=== PATIENT | male | born 1965 | race Caucasian/White ===

== ENCOUNTER 2016-08-26 06:04 | Day surgery (SDC) | payer OTHER ==
[2016-08-26] MEDS: HYDROmorphone 1 MG/ML SYRINGE ONE ×2 (00:50→08:45)
[2016-08-26] MEDS ORDERED: ACETAMINOPHEN 1,000 MG/100 ML 100 ML IV ONE (06:28)
[2016-08-26] MEDS ORDERED: LACTATED RINGERS 1,000 ML IV ONE (07:04)
[2016-08-26] MEDS ORDERED: CELECOXIB 100 MG CAPSULE PO ONE (07:14)
[2016-08-26] MEDS ORDERED: CLINDAMYCIN IV 600 MG/50 ML IV SCH (07:30)
[2016-08-26] MEDS ORDERED: LIDOCAINE-MPF 2% 5 ML VIAL IM ONE (08:00)
[2016-08-26] MEDS ORDERED: ONDANSETRON 4 MG/2 ML VIAL IVP ONE (08:00)
[2016-08-26] MEDS ORDERED: PROPOFOL 200 MG/20 ML VIAL IVP ONE (08:00)
[2016-08-26] MEDS ORDERED: fentaNYL 100 MCG/2 ML VIAL IVP ONE (08:00)
[2016-08-26] MEDS ORDERED: DEXAMETHASONE 4 MG/ML VIAL IVP ONE (08:00)
[2016-08-26] MEDS ORDERED: MIDAZOLAM 2 MG/2 ML VIAL IVP ONE (08:00)
[2016-08-26] MEDS ORDERED: MORPHINE PF 5 MG/10 ML AMP EPI ONE (08:04)
[2016-08-26] MEDS ORDERED: BUPIVACAINE 0.25%-EPI 1:200000 PF 30 ML VIAL SUBQ ONE (08:04)
[2016-08-26] MEDS ORDERED: ROPIVACAINE 0.2% PF 10 ML VIAL EPI ONE (08:04)
[2016-08-26] MEDS ORDERED: oxyCOD/ACETAMIN 5 MG/325 MG TABLET PO ONE (09:12)
== END 2016-08-26 06:05 | disposition home or self-care (01) ==
PROC: 0SBD4ZZ Excision of Left Knee Joint, Percutaneous Endoscopic Approach (ICD-10-PCS; principal; 2016-08-26 07:30)
DX: M67.52 Plica syndrome, left knee (principal); K21.9 Gastro-esophageal reflux disease without esophagitis; G47.30 Sleep apnea, unspecified; F17.210 Nicotine dependence, cigarettes, uncomplicated
CPT/HCPCS: 29875; A9270; J0131; J1170; J7120

== ENCOUNTER 2017-05-26 10:48 | Outpatient (CLI) | payer OTHER ==
[2017-05-26 18:38] VITALS: BP 158/92
--- NOTE | 2017-05-26 22:53 | CARDIAC PROCEDURE NOTE ---
DATE OF SERVICE: 05/26/2017 00:00:00 PRIMARY CARE PHYSICIAN. Derrek Almendarez, [facility]. PROCEDURE: Cardiac treadmill stress test. REASON FOR PROCEDURE: Chest pain. CARDIAC RISK FACTORS: Include age and smoker. CURRENT SYMPTOMATOLOGY: None. CLINICAL HISTORY: A 52-year-old male without known coronary artery disease. INITIAL RESTING VITAL SIGNS: Blood pressure 158/92, heart rate 54, height 66 inches, weight 190 pounds. BMI 30.6. PROCEDURE AND FINDINGS: The patient's identity and date verified. Consent signed. The patient performed treadmill exercise using a Ry protocol completing 10 minutes, 22 seconds and completing an estimated workload of 12.9 metabolic equivalents. Predicted exercise time was 9:40 to 10:25. Maximal blood pressure was 226/84 with a heart rate of 171 beats per minute or 101% of maximum predicted heart rate for age. The blood pressure response to exercise was hypertensive. The patient stopped because greater than 100% predicted heart rate was achieved. The resting ECG demonstrated normal sinus rhythm with repolarization abnormality. Maximum ST segment depression was less than 0.5 mm and upsloping. There was no ectopy. The 1 minute heart rate recovery was within normal limits. At 5 minutes into recovery he developed inverted T waves in the inferior and lateral leads. FINAL IMPRESSION 1. Negative stress electrocardiogram for ischemia by electrocardiographic criteria. 2. Nonspecific T-wave changes. 3. Negative stress test clinically for angina. 4. No ectopy nor arrhythmia. JOB #: [id number] EXT JOB #:[id number] MTDJuan
--- NOTE | 2017-05-27 16:45 | XRAY Report ---
CARDIOVASCULAR TREADMILL TEST There was no imaging performed for this exam. Procedure notes and results available in the EMR. CY
== END 2017-05-26 10:49 | disposition home or self-care (01) ==
LOC: DI 10:48
PROVIDERS: ATTEND Physician Assistant
DX: R07.89 Other chest pain (principal); F17.200 Nicotine dependence, unspecified, uncomplicated
CPT/HCPCS: 93017

== ENCOUNTER 2017-05-28 12:12 | Emergency (ER) | payer OTHER ==
--- NOTE | 2017-05-28 12:33 | ED Physician Documentation ---
PD HPI CHEST PAIN - Stated complaint Stated Complaint: CHEST PX - Chief complaint Chief Complaint: Cardiac - History obtained from History obtained from: Patient - History of Present Illness Timing - onset: How many days ago (1 1/2 days ago with undulating chest pressure /pain, worse this morning.) Timing - onset during: Exertion Timing - details: Abrupt onset (he has been having intermittent chest pain, with exertion, the past 1-2 weeks. Had rest chest pressure/pain the past 1 1/2 days, and then onset of worse chest pressure with nausea this morning 2-3 hours ago.), Waxing and waning Quality: Pressure, Tightness, Pain Location: Substernal Radiation: Neck, Left upper extremity Improved by: No: Rest Worsened by: No: Inspiration, Movement, Palpation, Position Associated symptoms: Shortness of air, Nausea. No: Feeling faint / dizzy, General Weakness, Palpitations Similar symptoms before: Has not had sx before Recently seen: Clinic (Seen in Clinic at [facility] with chest pain episodes, and was treated with GI meds and had outpatient stress test ordered. This was done 2 days ago here at [facility] and was interpreted as negative. He then had onset of rest pain intermittently later that evening, yesterday, and then worse/ persistent the past few hours.) Review of Systems Constitutional: denies: Fever, Chills Nose: denies: Rhinorrhea / runny nose, Congestion Throat: denies: Sore throat Cardiac: reports: Chest pain / pressure. denies: Palpitations, Pedal edema, Calf pain Respiratory: reports: Dyspnea. denies: Cough, Wheezing GI: reports: Nausea. denies: Abdominal Pain, Vomiting, Diarrhea, Bloody / black stool : denies: Dysuria, Frequency Skin: denies: Rash, Lesions Musculoskeletal: denies: Neck pain, Back pain Neurologic: reports: Generalized weakness. denies: Focal weakness, Numbness, Near syncope Psychiatric: denies: Anxiety Endocrine: denies: Weight loss, Easy bruising / bleeding Immunocompromised: denies: Immunocompromised PD PAST MEDICAL HISTORY - Past Medical History Cardiovascular: None Respiratory: None Endocrine/Autoimmune: None GI: GERD, Diverticulitis : None HEENT: None Psych: None Musculoskeletal: Osteoarthritis Derm: None - Past Surgical History Ortho: Shoulder arthroplasty - Present Medications Home Medications: Ambulatory Orders Medication Instructions Recorded Confirmed Esomeprazole Magnesium [Nexium] 40 mg PO DAILY 09/03/14 08/26/16 Ibuprofen 800 mg PO Q6HR 06/25/15 08/26/16 - Allergies Allergies/Adverse Reactions: Allergies Allergy/AdvReac Type Severity Reaction Status Date / Time Penicillins Allergy Dizziness Verified 05/28/17 12:23 - Living Situation Living Situation: reports: With spouse/s.o. Living Arrangement: reports: At home - Social History Does the pt smoke?: No Does the pt have substance abuse?: No - Family History Family history: reports: CAD PD ED PE NORMAL - Vitals Vital signs reviewed: Yes - General General: Alert and oriented X 3, Well developed/nourished, Other (appears in discomfort and is moderately pale. No diaphoresis. ) - HEENT HEENT: Pharynx benign - Neck Neck: Supple, no meningeal sign, No adenopathy - Cardiac Cardiac: RRR, No murmur - Respiratory Respiratory: Clear bilaterally - Abdomen Abdomen: Soft, Non tender - Back Back: No CVA TTP - Derm Derm: Warm and dry, No rash. No: Normal color (pallor) - Extremities Extremities: No deformity, No tenderness to palpate, Normal ROM s pain, No edema , No calf tenderness / cord - Neuro Neuro: Alert and oriented X 3, No motor deficit, Normal speech Results - Vitals Vitals: Vital Signs - 24 hr 05/28/17 05/28/17 05/28/17 12:18 12:35 12:45 Temperature 36.7 C Heart Rate 95 90 80 Respiratory 20 18 16 Rate Blood Pressure 134/92 H 129/82 H 123/79 O2 Saturation 98 96 97 Oxygen O2 Source Room air - EKG (time done) on presentation Rhythm: NSR [place]: Normal Intervals: Normal [place] QRS: Normal Ischemia: ST elevation c/w ischemia (anterior leads), ST depression (lateral) Compare to prior EKG: Old EKG unavailable - Labs Labs: Laboratory Tests 05/28/17 05/28/17 05/28/17 12:30 12:30 12:30 WBC 22.4 H RBC 5.17 Hgb 15.8 Hct 46.7 MCV 90.3 MCH 30.6 MCHC 33.9 RDW 13.1 Plt Count 296 MPV 8.3 Neut # Not Reportable Lymph # Not Reportable [place] # Not Reportable Eos # Not Reportable Baso # Not Reportable Absolute Nucleated RBC Not Reportable Band Neuts % (Manual) 0 Nucleated RBC % Not Reportable Neutrophils # (Manual) 17.7 H Lymphocytes # (Manual) 2.9 Monocytes # (Manual) 1.8 H Platelet Estimate NORMAL (130-450,000) RBC Morph Micro Appear NORMAL APPEARANCE Sodium 134 L Potassium 4.0 Chloride 98 L Carbon Dioxide 25 Anion Gap 11.0 BUN 16 Creatinine 0.9 Estimated GFR (MDRD) 89 Glucose 128 H Calcium 9.5 Total Bilirubin 1.0 AST 115 H ALT 45 Alkaline Phosphatase 64 Troponin I 16.13 H* Total Protein 8.0 Albumin 4.4 Globulin 3.6 Albumin/Globulin Ratio 1.2 Lipase 20 L - Rads (name of study) chest Radiology: Prelim report reviewed, EMP read contemporaneously (no acute process) PD MEDICAL DECISION MAKING - ED course Complexity details: reviewed old records (Old ECG not available (was at [facility] and the rhythm/ECG strips from stress test 2 days ago not on [facility]). Stress test report states negative test with some nonspecific T wave changes. ) , reviewed results, considered differential (The patient has been having intermittent chest pain with exertion or a week or 2. He had a stress test just 2 days ago but had an onset of rest chest heaviness and dyspnea starting the evening after the stress test and is continued for the past 1-1/2 days. It became more consistent and significantly more uncomfortable this morning in the last 2-3 hours. He is feeling nauseous with it. He comes in for evaluation. It seems like cardiac pain. His initial EKG is showing significant ST elevations anteriorly. Code STEMI is called and the patient is treated as such. He is transferred from here to [facility] promptly.), d/w patient, d /w software sales consultant ([facility] ER Physician, who accepts transfer. I then talked with Vending Machine Coin Collector as well as patient was enroute. ) - Critical Care Time(min): 35 Time Includes: Direct patient care, Document care, Coordinate care, Medical consult Procedures excluded from critical care time: EKG Departure - Departure Disposition: 02 Transfer Acute Care Hosp Clinical Impression: Chest pain Qualifiers: Chest pain type: precordial pain Qualified Code(s): R07.2 - Precordial pain ST elevation (STEMI) myocardial infarction Qualifiers: Involved coronary artery: other anterior wall coronary artery Qualified Code(s) : I21.09 - ST elevation (STEMI) myocardial infarction involving other coronary artery of anterior wall Condition: Critical Record reviewed to determine appropriate education?: Yes Discharge Date/Time: 05/28/17 12:52
[2017-05-28 12:35] LABS: BASOPHILS % (AUTO) 0.9 %; EOSINOPHILS % (AUTO) 0.5 %; HCT - HEMATOCRIT 46.7 % (42.0-52.0); HGB - HEMOGLOBIN 15.8 g/dL (14.0-18.0); LYMPHOCYTES % (AUTO) 13.1 %; MEAN CORPUSCULAR HEMOGLOBIN 30.6 pg (27.0-31.0); MEAN CORPUSCULAR HGB CONC 33.9 g/dL (32.0-36.0); MEAN CORPUSCULAR VOLUME 90.3 fL (80.0-94.0); MEAN PLATELET VOLUME 8.3 fL (7.4-11.4); MONOCYTES % (AUTO) 8.6 %; NEUTROPHILS % (AUTO) 76.9 %; RED BLOOD COUNT 5.17 10^6/uL (4.70-6.10); RED CELL DISTRIBUTION WIDTH 13.1 % (12.0-15.0); UNCORRECTED WHITE BLOOD COUNT 22.4 x10^3/uL; WHITE BLOOD COUNT 22.4 x10^3/uL (4.8-10.8)
[2017-05-28] MEDS ORDERED: CLOPIDOGREL 300 MG TABLET PO ONE (12:44)
[2017-05-28] MEDS ORDERED: ASPIRIN CHEW 81 MG TABLET ONE (12:44)
[2017-05-28] MEDS ORDERED: HEPARIN 5,000 UNIT/ML VIAL ONE (12:44)
[2017-05-28] MEDS ORDERED: HEPARIN 25,000 UNITS/500 ML NS 25,000 UNIT/500 ML BAG IV ONE (12:44)
[2017-05-28] MEDS ORDERED: METOPROLOL 5 MG/5 ML VIAL IVP ONE (12:47)
[2017-05-28 12:49] LABS: ALBUMIN/GLOBULIN RATIO 1.2 (1.0-2.2); CALCIUM 9.5 mg/dL (8.5-10.3); CREATININE 0.9 mg/dL (0.6-1.2)
[2017-05-28] MEDS ORDERED: ASPIRIN CHEW 81 MG TABLET PO STA (12:49)
[2017-05-28] MEDS ORDERED: CLOPIDOGREL 300 MG TABLET PO STA (12:49)
[2017-05-28] MEDS ORDERED: METOPROLOL 5 MG/5 ML VIAL IVP STA (12:50)
[2017-05-28] MEDS ORDERED: HEPARIN 5,000 UNIT/ML VIAL IVP STA (12:50)
[2017-05-28] MEDS ORDERED: ONDANSETRON 4 MG/2 ML VIAL IVP STA (12:50)
[2017-05-28] MEDS ORDERED: HEPARIN 25,000 UNITS/500 ML NS 25,000 UNIT/500 ML BAG IV STA (12:50)
[2017-05-28 13:05] VITALS: BP 123/79
--- NOTE | 2017-05-28 13:11 | XRAY Preliminary Report ---
Exam: XR CHEST 1 VIEW IMPRESSION: Normal single view chest. RADIA SITE ID: [id number]
[2017-05-28 13:12] LABS: BAND NEUTROPHILS % (MANUAL) 0 %; LYMPHOCYTES % (MANUAL) 13 %; NEUTROPHILS % (MANUAL) 79 %; NP AUTO DIFFERENTIAL? YES; NP MAN DIFFERENTIAL? NO; PLATELET ESTIMATE, MANUAL NORMAL (130-450,000) (NORMAL)
--- NOTE | 2017-05-28 13:14 | XRAY Report ---
EXAM: CHEST RADIOGRAPHY EXAM DATE: 05/28/2017 12:46 PM. CLINICAL HISTORY: Chest pain. COMPARISON: None. TECHNIQUE: 1 view. FINDINGS: Lungs/Pleura: No focal opacities evident. No pleural effusion. No pneumothorax. Mediastinum: Within exam limitations, the cardiomediastinal contour is normal. Other: None. IMPRESSION: Normal single view chest. RAD[facility] Referring Provider Line: [phone] SITE ID: [id number]
== END 2017-05-28 12:52 | disposition short-term general hospital (02) ==
LOC: ED 12:12
DX: I21.09 ST elevation (STEMI) myocardial infarction involving other coronary artery of anterior wall (principal); K21.9 Gastro-esophageal reflux disease without esophagitis; M19.90 Unspecified osteoarthritis, unspecified site
CPT/HCPCS: 36415; 71010; 80053; 83690; 84484; 85025; 93005; 96374; 96375; 96376; 99284; 99291; A9270

== ENCOUNTER 2017-05-28 13:05 | Outpatient (CLI) | payer OTHER | END 2017-05-28 13:06 | disposition short-term general hospital (02) | LOC: EMS 13:05 | PROVIDERS: ATTEND Surgery | DX: I21.09 ST elevation (STEMI) myocardial infarction involving other coronary artery of anterior wall (principal) | CPT/HCPCS: A0425; A0427 ==

== ENCOUNTER 2017-06-04 18:33 | Outpatient (CLI) | payer OTHER | END 2017-06-04 18:34 | disposition short-term general hospital (02) | LOC: EMS 18:33 | PROVIDERS: ATTEND Surgery | DX: I46.9 Cardiac arrest, cause unspecified (principal) | CPT/HCPCS: A0425; A0433 ==

== ENCOUNTER 2017-06-08 10:15 | Outpatient (CLI) | payer OTHER | END 2017-06-08 10:16 | disposition short-term general hospital (02) | LOC: EMS 10:15 | PROVIDERS: ATTEND Surgery | DX: R55 Syncope and collapse (principal) | CPT/HCPCS: A0425; A0427 ==

== ENCOUNTER 2017-06-11 10:52 | Observation (INO) | payer OTHER ==
--- NOTE | 2017-06-11 11:12 | ED Physician Documentation ---
PD HPI CHEST PAIN - Stated complaint Stated Complaint: SOA/WEAKNESS - History obtained from History obtained from: Patient, Family - History of Present Illness Timing - onset: How many days ago (4) Timing - onset during: Light activity Timing - duration: Days (4) Timing - details: Gradual onset, Still present Quality: Pressure, Sharp Location: Substernal Radiation: Neck Improved by: Rest Worsened by: Exertion, Inspiration, Movement Associated symptoms: Shortness of air, Nausea Similar symptoms before: Diagnosis (DC) Recently seen: Admitted, Surgery - Additional information Additional information: 52-year-old male had stents placed 2 weeks ago was on Plavix the stents failed he went into cardiac arrest was resuscitated and new stents were placed 1 week ago. He was released from the hospital 4 days ago and has had progressive fatigue since then. He was prescribe chantix and when he went to the pharmacy to burr picker the medication he was transferred to [facility] for evaluation for extreme fatigue the day after he was released. He has been taking the chantix daily. His biggest complaint is progressive fatigue. Review of Systems Constitutional: reports: Fatigue, Sweats. denies: Fever Eyes: denies: Decreased vision Ears: denies: Ear pain Nose: denies: Congestion Throat: denies: Sore throat Cardiac: reports: Chest pain / pressure, Palpitations Respiratory: reports: Dyspnea. denies: Cough GI: denies: Abdominal Pain, Nausea : denies: Dysuria Skin: denies: Rash Musculoskeletal: denies: Neck pain, Back pain Neurologic: reports: Generalized weakness. denies: Focal weakness, Numbness, Difficulty speaking Psychiatric: reports: Anxiety, Insomnia PD PAST MEDICAL HISTORY - Past Medical History Cardiovascular: None Respiratory: None Endocrine/Autoimmune: None GI: GERD, Diverticulitis : None HEENT: None Psych: None Musculoskeletal: Osteoarthritis Derm: None - Past Surgical History Past Surgical History: Yes Ortho: Shoulder arthroplasty - Present Medications Home Medications: Ambulatory Orders Medication Instructions Recorded Confirmed Esomeprazole Magnesium [Nexium] 40 mg PO DAILY 09/03/14 08/26/16 Ibuprofen 800 mg PO Q6HR 06/25/15 08/26/16 Aspirin Chewable [[place]ant 81 mg PO DAILY 06/11/17 06/11/17 Aspirin] Atorvastatin [Lipitor] 0 mg 06/11/17 Prasugrel HCl [Effient] 5 mg PO 06/11/17 Varenicline Tartrate [Chantix] 0.5 mg PO 06/11/17 raNITIdine [Zantac] 150 mg PO DAILY 06/11/17 06/11/17 - Allergies Allergies/Adverse Reactions: Allergies Allergy/AdvReac Type Severity Reaction Status Date / Time Penicillins Allergy Dizziness Verified 06/11/17 11:19 - Social History Does the pt smoke?: No Smoking Status: Never smoker Does the pt drink ETOH?: No Does the pt have substance abuse?: No - Immunizations Immunizations are current?: Yes PD ED PE NORMAL - General General: Well developed/nourished, Other (The patient prefers to lie with eyes closed and speaks quietly. He is wearing a defibrilator vest. ) - HEENT HEENT: Atraumatic, PERRL, EOMI - Neck Neck: Supple, no meningeal sign - Cardiac Cardiac: RRR, No murmur - Respiratory Respiratory: No respiratory distress, Clear bilaterally - Abdomen Abdomen: Soft, Non tender - Back Back: No CVA TTP, No spinal TTP - Derm Derm: Normal color, Warm and dry, No rash - Extremities Extremities: No deformity, No edema - Neuro Neuro: No motor deficit, No sensory deficit Eye Opening: Spontaneous Motor: Obeys Commands Verbal: Oriented GCS Score: 15 - Psych Psych: Other (mood is withdrawn and the affect is flat. ) Results - Vitals Vitals: Vital Signs - 24 hr 06/11/17 06/11/17 06/11/17 11:10 11:34 12:44 Temperature 36.8 C Heart Rate 62 61 63 Respiratory 16 16 16 Rate Blood Pressure 130/78 115/62 102/67 O2 Saturation 100 100 100 06/11/17 06/11/17 06/11/17 13:23 15:34 16:12 Temperature 36.2 C L Heart Rate 75 72 64 Respiratory 18 20 16 Rate Blood Pressure 114/63 131/81 H 122/70 O2 Saturation 100 99 97 Oxygen O2 Source Room air Oxygen Flow Rate 2 - EKG (time done) 1059 Rate: Rate (enter#) (56) Rhythm: NSR Ischemia: Q waves (anterior) Compare to prior EKG: Changed from prior EKG (SPT 06-04-[address] elevation in the anterior leads seen after arrest are now resolved. ) Computer interpretation: Agree with computer - Labs Labs: Laboratory Tests 06/11/17 06/11/17 06/11/17 10:09 10:09 10:09 WBC 14.2 H RBC 4.92 Hgb 15.1 Hct 44.3 MCV 90.1 MCH 30.8 MCHC 34.1 RDW 12.6 Plt Count 393 MPV 8.3 Neut # 10.0 H Lymph # 2.8 [place] # 1.1 H Eos # 0.1 Baso # 0.1 Absolute Nucleated RBC 0.00 Nucleated RBC % 0.0 PT 12.6 INR 1.1 Sodium 138 Potassium 4.3 Chloride 101 Carbon Dioxide 26 Anion Gap 11.0 BUN 18 Creatinine 1.0 Estimated GFR (MDRD) 79 L Glucose 108 H Calcium 9.7 Total Bilirubin 0.6 AST 24 ALT 45 Alkaline Phosphatase 85 Troponin I B-Natriuretic Peptide Total Protein 8.0 Albumin 4.0 Globulin 4.0 Albumin/Globulin Ratio 1.0 Lipase 25 06/11/17 06/11/17 06/11/17 10:09 10:09 14:26 WBC RBC Hgb Hct MCV MCH MCHC RDW Plt Count MPV Neut # Lymph # [place] # Eos # Baso # Absolute Nucleated RBC Nucleated RBC % PT INR Sodium Potassium Chloride Carbon Dioxide Anion Gap BUN Creatinine Estimated GFR (MDRD) Glucose Calcium Total Bilirubin AST ALT Alkaline Phosphatase Troponin I 0.25 0.24 B-Natriuretic Peptide 94 Total Protein Albumin Globulin Albumin/Globulin Ratio Lipase - Rads (name of study) 1 view chest Radiology: Prelim report reviewed (Impression: Grossly clear lungs.), EMP read indepedently, See rad report Procedures - IVC sono (time) 1215 Bedside IVC sono: IVC measures (cm) (1.02), IVC collapsed c insp (cm) (complete) , Dehydration (1 liter down.) PD MEDICAL DECISION MAKING - ED course Complexity details: reviewed old records, reviewed results, re-evaluated patient , considered differential, d/w patient, d/w family ED course: 52-year-old male with a recent DC and a second DC with arrest arrives to the emergency department today with fatigue as his chief complaint and not feeling well. He and his not been able to sleep and he is quite anxious. He feels that if he gets up to do anything he has symptoms.His initial workup here is fairly unremarkable and I reviewed the results with Dr. Gonzalez at [facility] and we will repeat his troponin today and provide some medication for anxiety. The anxiety medication works well but the road test is concerning for symptoms of light headedness after standing and getting the hear rate to 80. I have consulted Dr. Frausto in the case and she will place the patient in observation today and adjust medications as needed. The patient will stop his chantix. Departure - Departure Disposition: ED Place in Observation Clinical Impression: Post DC syndrome Condition: Fair Discharge Date/Time: 06/11/17 17:59
[2017-06-11 11:15] LABS: BASOPHILS # (AUTO) 0.1 10^3/uL (0.0-0.1); EOSINOPHILS # (AUTO) 0.1 10^3/uL (0.0-0.7); EOSINOPHILS % (AUTO) 0.9 %; HCT - HEMATOCRIT 44.3 % (42.0-52.0); HGB - HEMOGLOBIN 15.1 g/dL (14.0-18.0); LYMPHOCYTES # (AUTO) 2.8 10^3/uL (1.5-3.5); LYMPHOCYTES % (AUTO) 19.6 %; MEAN CORPUSCULAR HEMOGLOBIN 30.8 pg (27.0-31.0); MEAN CORPUSCULAR HGB CONC 34.1 g/dL (32.0-36.0); MEAN CORPUSCULAR VOLUME 90.1 fL (80.0-94.0); MEAN PLATELET VOLUME 8.3 fL (7.4-11.4); MONOCYTES # (AUTO) 1.1 10^3/uL (0.0-1.0); MONOCYTES % (AUTO) 7.9 %; NEUTROPHILS % (AUTO) 70.6 %; RED BLOOD COUNT 4.92 10^6/uL (4.70-6.10); RED CELL DISTRIBUTION WIDTH 12.6 % (12.0-15.0); UNCORRECTED WHITE BLOOD COUNT 14.2 x10^3/uL; WHITE BLOOD COUNT 14.2 x10^3/uL (4.8-10.8)
[2017-06-11 11:22] LABS: INR 1.1 (0.8-1.2); PT - PROTHROMBIN TIME 12.6 secs (9.9-12.6)
[2017-06-11 11:28] LABS: BILIRUBIN,TOTAL 0.6 mg/dL (0.2-1.0); CALCIUM 9.7 mg/dL (8.5-10.3); POTASSIUM 4.3 mmol/L (3.5-5.0)
--- NOTE | 2017-06-11 12:24 | XRAY Preliminary Report ---
Exam: XR CHEST 1 VIEW IMPRESSION: Grossly clear lungs. RADI SITE ID: [id number]
--- NOTE | 2017-06-11 12:26 | XRAY Report ---
EXAM: CHEST RADIOGRAPHY EXAM DATE: 06/11/2017 11:44 AM. CLINICAL HISTORY: Chest pain . COMPARISON: 05/28/2017. TECHNIQUE: 1 view. FINDINGS: Lungs/Pleura: No focal opacities evident. No pleural effusion. No pneumothorax. Mediastinum: Within exam limitations, the cardiomediastinal contour is normal. Other: None. IMPRESSION: Grossly clear lungs. [facility] Referring Provider Line: [phone] SITE ID: [id number]
[2017-06-11] MEDS ORDERED: LORazepam 2 MG/ML SYRINGE IVP STA (12:36)
[2017-06-11] MEDS ORDERED: SODIUM CHLORIDE 0.9% 1,000 ML IV ONE (12:36)
[2017-06-11] MEDS ORDERED: LORazepam 2 MG/ML SYRINGE ONE (12:45)
[2017-06-11] MEDS ORDERED: ACETAMINOPHEN 325 MG TABLET PO PRN (16:57)
[2017-06-11] MEDS ORDERED: TEMAZEPAM 15 MG CAPSULE PO PRN (16:57)
[2017-06-11] MEDS ORDERED: ONDANSETRON ODT 4 MG TABLET TL PRN (16:57)
[2017-06-11] MEDS ORDERED: SODIUM CHLORIDE FLUSH 0.9% 10 ML SYRINGE IVP PRN (16:57)
[2017-06-11] MEDS ORDERED: LORazepam 0.5 MG TABLET PO PRN (19:20)
--- NOTE | 2017-06-11 19:25 | HISTORY & PHYSICAL EXAMINATION ---
Chief Complaint - Chief Complaint Chief Complaint: dizziness Chest Pain Admission HPI - Admitted From Admitted from: ED - History Obtained From Records Reviewed: RN notes reviewed, Old records reviewed History obtained from: Patient, Family Exam limitations: No limitations - History of Present Illness Pain/Problem Location Description: Soreness in chest related to prior CPR. Severity at the worst: reports: Moderate Pain Quality: reports: Sharp, Aching Context-Pain started w/: reports: Exertion, Palpation Timing: reports: Constant Duration: reports: Unknown Improved with: reports: Nothing Worsened by: reports: Exertion, Inspiration, Movement Associated symptoms: reports: Shortness of air, Feeling faint / dizzy, General Weakness HPI Comment/Other: Beto Nieves is a 52-year-old male who had a stress test here as an outpatient on 05/28/17 without imaging that was presumed negative. He later came to the ED with a troponin of 16, so urgently sent to [facility] for a stent placed in the LAD and discharged on 05/30/17. On 06/04/17 the patient collapsed at home and his started CPR which was continued when EMS arrived. ROSC was obtained en route to [facility] where patient received 2 more stents and discharged on Effient and instructed to wear a life vest. He has had low activity tolerance with more frequent syncope, progressive fatigue, a warm feeling through out his body since then. He was prescribed chantix and when he went to the pharmacy to pickle pumper the medication he was transferred to [facility] for evaluation for extreme fatigue the day after he was released. With today being a Tuesday, the patient had 2 cardiac events both on Saturdays, 05/28 and 06/04, so he felt that this could be a day for the 3rd event. He will be placed on observation for syncope work up and management of anxiety. PMH/PSH - Past Medical History Cardiovascular: positive: None Respiratory: positive: None Neuro: positive: None Endocrine/Autoimmune: positive: None GI: positive: GERD, Diverticulitis : positive: None, Other (difficult to start a stream/slow since straight cathed from last hospital stay 06/08) HEENT: positive: None, Chronic hearing loss (slight since being in the [place]) Psych: positive: None Musculoskeletal: positive: Osteoarthritis Derm: positive: None MRSA Hx?: No Other Past Medical History: 3 cardiac stents placed/s/p cardiac arrest - Past Surgical History Ortho: positive: ACL reconstruction (bilateral shoulders), Shoulder arthroplasty Cardiovascular: positive: Coronary stent Social & Family Hx - Living Situation Living Arrangement: At home Living Situation: With spouse/s.o. (and 2 children) - Social History Does the pt smoke?: No Smoking Status: Former smoker (1 ppd history since age 16, quit) Does the pt drink ETOH?: No Does the pt have substance abuse?: No - POLST Patient has POLST: No POLST Status: Full Code - Family History Family History: Mother: Alive and Well, Cancer, Diabetes, Type 2, [place], Father: Alive and Well, Alcoholism, Cancer, CVA/TIA, [place], Brother: Alive and Well, Diabetes, Type 2 Meds/Allgy - Home Medications Home Medications: Ambulatory Orders Medication Instructions Recorded Confirmed Prasugrel HCl [Effient] 10 mg PO DAILY 06/11/17 06/12/17 Varenicline Tartrate [Chantix] 1 mg PO [id number] 06/11/17 06/12/17 raNITIdine [Zantac] 150 mg PO BID 06/11/17 06/12/17 Aspirin [Aspirin EC] 81 mg PO DAILY 06/12/17 06/12/17 Atorvastatin Calcium 40 mg PO QPM 06/12/17 06/12/17 Lisinopril 2.5 mg PO DAILY 06/12/17 06/12/17 Metoprolol Tartrate 12.5 mg PO BID 06/12/17 06/12/17 - Allergies Allergies/Adverse Reactions: Allergies Allergy/AdvReac Type Severity Reaction Status Date / Time Penicillins Allergy Dizziness Verified 06/11/17 11:19 Review of Systems - Constitutional Constitutional: reports: Fatigue, Malaise, Weakness, Poor appetite - Eyes Eyes: reports: Vision loss (related to age.) - Ears, Nose & Throat Ears, Nose & Throat: reports: Hearing loss, Tinnitus - Cardiovascular Cariovascular: reports: Palpitations, Lightheadedness, Syncope, Exertional dyspnea, Decr. exercise tolerance - Respiratory Respiratory: reports: SOB with exertion - Gastrointestinal Gastrointestinal: reports: Reflux/heartburn, Poor appetite - Genitourinary Genitourinary: reports: Dysuria - Neurological Neurological: reports: General weakness, Dizziness - Psychiatric Psychiatric: reports: Anxiety - All Other Systems All Other Systems: reports: Reviewed and negative Exam - Vital Signs Reviewed Vital Signs: Yes Vital Signs: Vital Signs x48h Temp Pulse Pulse Resp BP BP Pulse Ox 06/11/17 17:34 80 16 110/62 100 06/11/17 17:00 36.5 C 78 16 116/68 96 - Physical Exam General Appearance: positive: No acute distress, Anxious Eyes Bilateral: positive: Normal inspection ENT: positive: ENT inspection nml, Pharynx nml, No signs of dehydration Neck: positive: Nml inspection, Thyroid nml, No JVD, Trachea midline Respiratory: positive: Chest non-tender, No respiratory distress, Breath sounds nml Cardiovascular: positive: Regular rate & rhythm, Systolic murmur Peripheral Pulses: positive: 2+ Abdomen: positive: Non-tender, No organomegaly, Nml bowel sounds, No distention Back: positive: Nml inspection Skin: positive: Color nml, No rash, Warm, Dry Extremities: positive: Non-tender, Full ROM, Nml appearance, No pedal edema Neurologic/Psychiatric: positive: Oriented x3, CN's nml (2-12), Motor nml, Sensation nml, Depressed mood/affect Reflexes: Bicep (R): 4+, Bicep (L): 4+ Results - Lab Results Lab results reviewed: Yes Fish Bones: 06/11/17 10:09 06/11/17 10:09 Other Lab Results: Lab Results x24hrs 06/11/17 Range/Units 17:58 Troponin I 0.22 (<0.49) ng/mL - Diagnostic Imaging Results Diagnostic Imaging Results: positive: Prelim report reviewed - EKG Results EKG Interpreted Independently: Yes ARRA - Anticipated LOS Anticipated Stay Length: Less than 2 midnights - AMI - Statin at Admit Aspirin Prescribed on Admit: Yes - Stroke - Rehab Assessment Rehab services assessment to be ordered?: No - DVT/VTE - Prophylaxis VTE/DVT Device ordered at admit?: Yes VTE/DVT Prophylaxis med ordered at admit?: Yes CP/CHF Plan - Echo Plan to order an echo?: Yes - Plan Patient Problems: All Active Problems Post AK syndrome (Acute) Chest pain (Acute) ST elevation (STEMI) myocardial infarction (Acute) Plan: Syncope and collapse (R55)- This was Beto's primary complaint in addition to activity intolerance stating that he could only tolerate a few minutes each day of sitting up. I suspect this is medication related. Plan: Syncope work up including orthostatic blood pressures, carotid dopplers, echocardiogram and medication adjustment. Fatigue (R53.83)- As a consequence of the syncope, patient has had very low energy and "living on the edge of his seat" since being discharged from [facility] with his life vest. This symptom has been steadily increasing. Plan: Awaiting syncope work up results. Work on physical therapy. ST elevation (STEMI)- Patient has a history of this, now not apparent. Plan: Continue to monitor on telemetry. myocardial infarction involving left anterior descending coronary artery (I21.02 )- Status post PCI to LAD and RCA, now on Effient, ASA, beta jossie and RAVEN. Plan: Continue medications. Unspecified systolic (congestive) heart failure (I50.20)- Patient has a known history with last EF noted at 40% on 06/06/17. Plan: Echocardiogram, and continue medications. Anxiety disorder, unspecified (F41.9)- Likely due to recent life events. Previously coping with tobacco dependence. Not on medications. Plan: May prescribe medication upon discharge. Tobacco dependence: Patient admits to being a life long smoker since age 16. Plan: Continue to monitor and come up with a discharge plan to support cessation.
[2017-06-11] MEDS: SODIUM CHLORIDE FLUSH 0.9% 10 ML SYRINGE IVP SCH (21:14)
[2017-06-12] MEDS: SODIUM CHLORIDE FLUSH 0.9% 10 ML SYRINGE IVP SCH (07:00)
[2017-06-12] MEDS ORDERED: HYDROcod/ACETAM 10 MG/325 MG TABLET PO SCH (08:00)
[2017-06-12] MEDS ORDERED: FAMOTIDINE 20 MG TABLET PO SCH (09:00)
[2017-06-12] MEDS ORDERED: ASPIRIN CHEW 81 MG TABLET PO SCH (09:00)
[2017-06-12] MEDS ORDERED: POLYETHYLENE GLYCOL 3350 17 GM PACKET PO SCH (09:00)
[2017-06-12] MEDS ORDERED: PRASUGREL HCL 10 MG PO SCH (09:00)
--- NOTE | 2017-06-12 11:22 | Discharge Plan ---
Discharge Plan Disposition: Home, Self Care Condition: Good Prescriptions: LORazepam [Ativan] 0.5 mg PO Q6HR PRN 14 Days #25 tablet PRN Reason: Anxiety buPROPion [Wellbutrin Xl] 150 mg PO DAILY #30 tablet Metoprolol Succinate [Toprol Xl] 12.5 mg PO DAILY #30 tablet Ramipril [Altace] 1.25 mg PO DAILY #30 capsule Temazepam [Restoril] 30 mg PO QPM PRN #30 capsule PRN Reason: Insomnia Diet: Cardiac Activity Restrictions: No Restrictions Shower Restrictions: No Driving Restrictions: No Weight Bearing: Full Weight Additional Instructions or Follow Up instructions: You came to the ED after feeling lightheadedness, fatigue, and decreased activity tolerance. We suspected that this was likely due to medications rather than a complication of your previous heart attacks due to the lack of EKG changes. You were put through a syncope work up including orthostatic blood pressures- which was normal, a carotid Doppler study to check for lack of blood flow to your brain-which was pending, telemetry monitoring-which was normal in rhythm and the rate was noted to be 50-60 overnight and 80's with movement. Lastly, a new Echocardiogram at your bedside was completed-which was our most encouraging and exciting finding! It shows a great improvement with the overall function of your heart by measuring the function in your left ventricle that went from 40 % up to 60%. It also showed a regional wall motion improvement, with the abnormality localized to just the apex (this is the very bottom of the left ventricle). I can conclude that the symptoms you had were from the side effects of your medications. You need these to medically manage your heart, but now is the time to make minor adjustments to keep you feeling well. The Life Vest is a good safety net, but you need to be referred to an Electophysiologist (EP) this week to determine the timing of getting an implanted internal cardioverter/defibrillator. Your PCP or your Evidence Custodian (Dr Felton), can refer you to an EP doctor. Follow up with your PCP this week to make the EP referral and check on your symptoms. If you get chest pain, or any symptoms, please come the the ED. Follow-Up Care: [facility] - Cardiac No Smoking: If you smoke, Please STOP! Call for help. Follow-up with: TIMOTHY DONNELLY [Primary Care Provider] -
[2017-06-12] MEDS ORDERED: LISINOPRIL 5 MG TABLET PO SCH (12:00)
[2017-06-12] MEDS ORDERED: METOPROLOL SUCCINATE 25 MG TABLET PO SCH (12:00)
--- NOTE | 2017-06-12 12:26 | DISCHARGE SUMMARY ---
Discharge Summary Admit Date: 06/11/17 Discharge Date: 06/12/17 Discharging Provider: GUCCI Ugalde Primary Care Provider: Debbie Niño Code Status: Attempt Resuscitation Condition at Discharge: Good Discharge Disposition: 01 Home, Self Care - DIAGNOSES Admission Diagnoses: Post [place] syndrome (Acute) Chest pain (Acute) ST elevation (STEMI) myocardial infarction (Acute) Discharge Diagnoses with Status of Each Condition: Syncope and collapse (R55)- This was Beto's primary complaint in addition to activity intolerance stating that he could only tolerate a few minutes each day of sitting up. I suspect this is medication related. Plan: Syncope work up including orthostatic blood pressures-negative, carotid dopplers, echocardiogram-showed an improvement from an EF of 40% to 60% and medication adjustments were made. Fatigue (R53.83)- As a consequence of the syncope, patient has had very low energy and "living on the edge of his seat" since being discharged from [facility] with his life vest. This symptom has been steadily increasing. Plan: Anticipate this to improve as heart function is better. ST elevation (STEMI)- Patient has a history of this, now not apparent according to EKG. Plan: Continue to monitor on telemetry. Myocardial infarction involving left anterior descending coronary artery (I21.02 )- Status post PCI to LAD and RCA, now on Effient, ASA, beta jossie and RAVEN. Plan: Continue medications and Life Vest per cardiology. Unspecified systolic (congestive) heart failure (I50.20)- Patient has a known history with last EF noted at 40% on 06/06/17, now improved to 60% per Echo completed on this admission. Plan: Echocardiogram, and continue medications. Anxiety disorder, unspecified (F41.9)- Likely due to recent life events. Previously coping with tobacco dependence. Not on medications. Plan: Prescribed Wellbutrin for depression/anxiety and smoking cessation upon discharge. Tobacco dependence: Patient admits to being a life long smoker since age 16. Plan: Continue to monitor and Wellbutrin prescribed for discharge to support cessation. - HPI History of Present Illness: Beto Nieves is a 52-year-old male who had a stress test here as an outpatient on 05/28/17 without imaging that was presumed negative. He later came to the ED with a troponin of 16, so urgently sent to [facility] for a stent placed in the LAD and discharged on 05/30/17. On 06/04/17 the patient collapsed at home and his started CPR which was continued when EMS arrived. ROSC was obtained en route to [facility] where patient received 2 more stents and discharged on Effient and instructed to wear a life vest. He has had low activity tolerance with more frequent syncope, progressive fatigue, a warm feeling through out his body since then. He was prescribed chantix and when he went to the pharmacy to moss picker the medication he was transferred to [facility] for evaluation for extreme fatigue the day after he was released. With today being a Tuesday, the patient had 2 cardiac events both on Saturdays, 05/28 and 06/04, so he felt that this could be a day for the 3rd event. He will be placed on observation for syncope work up and management of anxiety. - HOSPITAL COURSE Hospital Course: Beto came to the ED after feeling lightheadedness, fatigue, and decreased activity tolerance. We suspected that this was likely due to medications rather than a complication of your previous heart attacks due to the lack of EKG changes. He was put through a syncope work up including orthostatic blood pressures- which was normal, a carotid Doppler study to check for lack of blood flow to your brain-which showed no stenosis, telemetry monitoring-which was normal in rhythm and the rate was noted to be 50-60 overnight and 80's with movement. Lastly, a new Echocardiogram at your bedside was completed-which was our most encouraging and exciting finding! It shows a great improvement with the overall function of the heart by measuring the function in the left ventricle that went from 40% up to 60%. It also showed a regional wall motion improvement , with the abnormality localized to just the apex (this is the very bottom of the left ventricle). I can conclude that the symptoms were from the side effects of medications. The Life Vest is a good safety net, but the patient needs to be referred to an Electophysiologist (EP) this week to determine the timing of getting an implanted internal cardioverter/defibrillator. PCP or Pattern Ruler (Dr Felton), can refer to an EP doctor. Patient was instructed to follow up with your PCP this week to make the EP referral and check on your symptoms. He was transported via private car home with . Prescriptions sent to [facility] in [place] since [facility] was closed. - ALLERGIES Allergies/Adverse Reactions: Allergies Allergy/AdvReac Type Severity Reaction Status Date / Time Penicillins Allergy Dizziness Verified 06/11/17 11:19 - MEDICATIONS Home Medications: Ambulatory Orders Medication Instructions Recorded Confirmed Prasugrel HCl [Effient] 10 mg PO DAILY 06/11/17 06/12/17 raNITIdine [Zantac] 150 mg PO BID 06/11/17 06/12/17 Aspirin [Aspirin EC] 81 mg PO DAILY 06/12/17 06/12/17 Atorvastatin Calcium 40 mg PO QPM 06/12/17 06/12/17 LORazepam [Ativan] 0.5 mg PO Q6HR PRN 14 Days #25 06/12/17 tablet Metoprolol Succinate [Toprol Xl] 12.5 mg PO DAILY #30 tab.er.24h 06/12/17 Metoprolol Succinate [Toprol Xl] 12.5 mg PO DAILY #30 tablet 06/12/17 Metoprolol Succinate [Toprol Xl] 12.5 mg PO DAILY #30 tablet 06/12/17 Ramipril [Altace] 1.25 mg PO DAILY #30 capsule 06/12/17 Ramipril [Altace] 1.25 mg PO DAILY #30 capsule 06/12/17 Ramipril [Altace] 1.25 mg PO DAILY #30 capsule 06/12/17 Temazepam [Restoril] 30 mg PO QPM PRN #30 capsule 06/12/17 buPROPion [Wellbutrin Xl] 150 mg PO DAILY #30 tablet 06/12/17 buPROPion [Wellbutrin Xl] 150 mg PO DAILY #30 tablet 06/12/17 buPROPion [Wellbutrin Xl] 150 mg PO DAILY #30 tablet 06/12/17 - PHYSICAL EXAM AT DISCHARGE General Appearance: positive: No acute distress, Alert Eyes Bilateral: positive: Normal inspection ENT: positive: ENT inspection nml, Pharynx nml, No signs of dehydration Neck: positive: Nml inspection, Thyroid nml, No JVD, Trachea midline Respiratory: positive: Chest non-tender, No respiratory distress, Breath sounds nml Cardiovascular: positive: Regular rate & rhythm, No gallop, Systolic murmur Peripheral Pulses: positive: 2+ Abdomen: positive: Non-tender, No organomegaly, Nml bowel sounds, No distention Back: positive: Nml inspection Skin: positive: Color nml, No rash, Warm, Dry Extremities: positive: Non-tender, Full ROM, Nml appearance, No pedal edema Neurologic/Psychiatric: positive: Oriented x3, CN's nml (2-12), Motor nml, Sensation nml, Depressed mood/affect Reflexes: Bicep (R): 4+, Bicep (L): 4+ - LABS Result Diagrams: 06/11/17 10:09 06/11/17 10:09 - DIAGNOSTIC IMAGING Diagnostic Imaging Results: Final report reviewed - FOLLOW UP Follow Up: You came to the ED after feeling lightheadedness, fatigue, and decreased activity tolerance. We suspected that this was likely due to medications rather than a complication of your previous heart attacks due to the lack of EKG changes. You were put through a syncope work up including orthostatic blood pressures- which was normal, a carotid Doppler study to check for lack of blood flow to your brain-which was pending, telemetry monitoring-which was normal in rhythm and the rate was noted to be 50-60 overnight and 80's with movement. Lastly, a new Echocardiogram at your bedside was completed-which was our most encouraging and exciting finding! It shows a great improvement with the overall function of your heart by measuring the function in your left ventricle that went from 40 % up to 60%. It also showed a regional wall motion improvement, with the abnormality localized to just the apex (this is the very bottom of the left ventricle). I can conclude that the symptoms you had were from the side effects of your medications. You need these to medically manage your heart, but now is the time to make minor adjustments to keep you feeling well. The Life Vest is a good safety net, but you need to be referred to an Electophysiologist (EP) this week to determine the timing of getting an implanted internal cardioverter/defibrillator. Your PCP or your Pattern Ruler (Dr Felton), can refer you to an EP doctor. Follow up with your PCP this week to make the EP referral and check on your symptoms. - TIME SPENT Time Spent in Discharge (Minutes): 90
[2017-06-12 12:28] VITALS: BP 113/76
--- NOTE | 2017-06-12 16:44 | Ultrasound Report ---
EXAM: CAROTID DOPPLER ULTRASOUND EXAM DATE: 06/12/2017 10:45 AM. CLINICAL HISTORY: Syncope. COMPARISON: None. TECHNIQUE: Real-time sonographic vascular imaging was performed by the inventory administrator through the [employer] d arterial system with a linear transducer utilizing color-flow, Doppler flow and spectral analysis. Multiple direct customer service representative static images were saved for review. FINDINGS: Prevertebral soft tissues are normal. Both vertebral arteries are antegrade in flow. Moderate amount of calcified and noncalcified plaques are present in both carotid bulbs and extending into the internal carotid artery bilaterally. No hemodynamically significant stenoses are noted. Right: RCCA Prox: PSV 112.5 cm/sec. RCCA Dist: PSV 87.6 cm/sec, EDV 24.34 cm/sec. RECA: PSV 92.5 cm/sec. R Bulb: PSV 68.7 cm/sec, EDV 18.4 cm/sec, ICA/CCA ratio 1.4. MARU Prox: PSV 121.2 cm/sec, EDV 12.9 cm/sec, ICA/CCA ratio 1.4. MARU Mid: PSV 84.9 cm/sec, EDV 325 cm/sec, ICA/CCA ratio 1.0. MARU Dist: PSV 80.7 cm/sec, EDV 31.9 cm/sec, ICA/CCA ratio 0.9. RVA: PSV 81.8 cm/sec. RVA flow direction: Antegrade. Left: LCCA Prox: PSV 112.0 cm/sec. LCCA Dist: PSV 90.3 cm/sec, EDV 25.4 cm/sec. LECA: PSV 81.7 cm/sec. L Bulb: PSV 60.0 cm/sec, EDV 21.4 cm/sec, ICA/CCA ratio 0.7. LICA Prox: PSV 94.7 cm/sec, EDV 25.4 cm/sec, ICA/CCA ratio 1.0. LICA Mid: PSV 81.1 cm/sec, EDV 35.7 cm/sec, ICA/CCA ratio 0.9. LICA Dist: PSV 100.1 cm/sec, EDV 42.7 cm/sec, ICA/CCA ratio 1.1. LVA: PSV 66 cm/sec. LVA flow direction: Antegrade. Other: None. IMPRESSION: 1. No hemodynamically significant stenoses. 2. Both vertebral arteries are antegrade in flow. Validated velocity measurements with angiographic measurements and velocity criteria are extrapolated from diameter data as defined by the Society of Radiologists in Ultrasound Consensus Conference Radi ology 2003; 229;340-346. RADIA Referring Provider Line: [phone] SITE ID: [id number]
[2017-06-13] MEDS ORDERED: ASPIRIN EC 81 MG TABLET PO SCH (09:00)
== END 2017-06-12 14:15 | disposition home or self-care (01) ==
LOC: ED 10:52 → OBS 16:57
PROVIDERS: ADMIT Nurse Practitioner; ATTEND Nurse Practitioner
DX: I24.1 Dressler's syndrome (principal); I22.0 Subsequent ST elevation (STEMI) myocardial infarction of anterior wall; I22.9 Subsequent ST elevation (STEMI) myocardial infarction of unspecified site; R55 Syncope and collapse; R53.83 Other fatigue; F41.9 Anxiety disorder, unspecified; I50.20 Unspecified systolic (congestive) heart failure; K21.9 Gastro-esophageal reflux disease without esophagitis; F17.210 Nicotine dependence, cigarettes, uncomplicated; Z95.5 Presence of coronary angioplasty implant and graft
CPT/HCPCS: 36415; 71010; 80053; 80306; 83690; 83880; 84484; 85025; 85610; 93005; 93306; 93880; 96361; 96374; 99284; 99285; A9270; G0378; J2060; 84443

== ENCOUNTER 2018-06-22 12:48 | Outpatient (CLI) | payer OTHER | END 2018-06-22 12:49 | disposition home or self-care (01) | LOC: DI 12:48 | PROVIDERS: ATTEND Family Medicine | DX: I25.10 Atherosclerotic heart disease of native coronary artery without angina pectoris (principal); I25.2 Old myocardial infarction; R94.39 Abnormal result of other cardiovascular function study | CPT/HCPCS: 93306 ==

== ENCOUNTER 2018-09-07 11:33 | Emergency (ER) | payer OTHER ==
[2018-09-07 11:49] VITALS: BP 123/86
[2018-09-07] MEDS ORDERED: oxyCODONE 5 MG TABLET PO STA (12:22)
--- NOTE | 2018-09-07 12:49 | ED Physician Documentation ---
PD HPI BACK PAIN - Stated complaint Stated Complaint: BACK PAIN - Chief complaint Chief Complaint: Back Pain - History obtained from History obtained from: Patient - History of Present Illness Timing - onset: Today Timing - duration: Days (1) Timing - details: Gradual onset Pain level max: 7 Pain level now: 7 Location: Upper, Right, Left Quality: Pain, Spasm, Similar to prior episodes Associated symptoms: No: Fever, Weakness, Numbness, Incontinent of urine, Unable to urinate, Hematuria, Incontinent of stool Improves with: Rest Worsened by: Movement Contributing factors: Lifting (moving carpet rolls yesterday at work) Review of Systems Constitutional: denies: Fever, Chills GI: denies: Nausea, Vomiting : denies: Incontinent Skin: denies: Rash Musculoskeletal: denies: Neck pain Neurologic: denies: Focal weakness, Numbness PD PAST MEDICAL HISTORY - Past Medical History Cardiovascular: None Respiratory: None Endocrine/Autoimmune: None GI: GERD, Diverticulitis : None, Other HEENT: None, Chronic hearing loss Psych: None Musculoskeletal: Osteoarthritis Derm: None - Past Surgical History Past Surgical History: Yes Ortho: ACL reconstruction, Shoulder arthroplasty Cardiovascular: Coronary stent - Present Medications Home Medications: Ambulatory Orders Medication Instructions Recorded Confirmed raNITIdine [Zantac] 150 mg PO BID 06/11/17 06/12/17 Aspirin [Aspirin EC] 81 mg PO DAILY 06/12/17 06/12/17 Atorvastatin Calcium 40 mg PO QPM 06/12/17 06/12/17 Carvedilol 3.125 mg PO 09/07/18 09/07/18 Cyclobenzaprine [Flexeril] 10 mg PO 09/07/18 Ergocalciferol [Vitamin D2] 50,000 unit PO Q7D 09/07/18 09/07/18 Folic Acid 1 mg PO DAILY 09/07/18 09/07/18 Oxycodone HCl/Acetaminophen 1 - 2 each PO Q6H PRN #14 tablet 09/07/18 [Percocet 5-325 mg Tablet] Ramipril [Altace] 1.25 mg PO BID 09/07/18 Tamsulosin [Flomax] 0.8 mg PO DAILY 09/07/18 09/07/18 Ticagrelor [Brilinta] 60 mg PO BID 09/07/18 09/07/18 raNITIdine [Zantac] 150 mg PO DAILY 09/07/18 09/07/18 traMADol [Ultram] 50 mg PO ONCE 09/07/18 09/07/18 - Allergies Allergies/Adverse Reactions: Allergies Allergy/AdvReac Type Severity Reaction Status Date / Time Penicillins Allergy Dizziness Verified 09/07/18 11:49 - Social History Does the pt smoke?: No Smoking Status: Never smoker Does the pt drink ETOH?: No Does the pt have substance abuse?: No - Immunizations Immunizations are current?: Yes - POLST Patient has POLST: No POLST Status: Full Code PD ED PE NORMAL - Vitals Vital signs reviewed: Yes - General General: Alert and oriented X 3, No acute distress - HEENT HEENT: Moist mucous membranes - Neck Neck: Supple, no meningeal sign, No bony TTP - Cardiac Cardiac: RRR - Respiratory Respiratory: No respiratory distress, Clear bilaterally - Abdomen Abdomen: Soft, Non tender, Non distended - Back Back: No spinal TTP (No step-off or deformity.), Other (Paraspinal spasm upper thoracic area.) - Derm Derm: Warm and dry - Extremities Extremities: Normal ROM s pain, Other (Normal bilateral lower extremity patellar and ankle jerk reflexes. Normal great toe extension bilaterally. no saddle anesthesia) - Neuro Neuro: Alert and oriented X 3, No motor deficit, No sensory deficit Results - Vitals Vitals: Vital Signs - 24 hr 09/07/18 11:45 Temperature 36.6 C Heart Rate 85 Respiratory 20 Rate Blood Pressure 123/86 H O2 Saturation 99 Oxygen O2 Source Room air - EKG (time done) 1207 Rate: Rate (enter#) (75) Rhythm: NSR [place]: Normal Intervals: Normal NV QRS: Normal Ischemia: Normal ST segments, Q waves (In V1, III, aVF) PD MEDICAL DECISION MAKING - ED course Complexity details: considered differential, d/w patient ED course: 53-year-old male presents to the emergency department with up with her thoracic back strain. He is already taking muscle relaxants at home. We will add a small amount of narcotics for a few days. Patient is well-appearing, nontoxic. Afebrile. No evidence of acute coronary syndrome. No evidence of aortic dissection. Patient counseled regarding signs and symptoms for which I believe and urgent re-evaluation would be necessary. Patient with good understanding of and agreement to plan and is comfortable going home at this time This document was made in part using voice recognition software. While efforts are made to proofread this document, sound alike and grammatical errors may occur. Departure - Departure Disposition: 01 Home, Self Care Clinical Impression: Thoracic myofascial strain Qualifiers: Encounter type: initial encounter Qualified Code(s): S29.019A - Strain of muscle and tendon of unspecified wall of thorax, initial encounter Condition: Good Instructions: ED Neck Back Pain General Follow-Up: VINCENZO LEE DO [Primary Care Provider] - Within 1 week Prescriptions: Oxycodone HCl/Acetaminophen [Percocet 5-325 mg Tablet] 1 - 2 each PO Q6H PRN #14 tablet PRN Reason: pain Comments: Use the medication as needed for pain. This should improve over the next few days. Return if you worsen. Do not drink alcohol or drive while on narcotic pain medicine. Note that many narcotic pain relievers also contain tylenol/acetaminophen. Please ensure that your total dose of acetaminophen from all sources does not exceed 3 grams (3000mg) per day. You may constipated on this medication, take a stool softener such as "Colace" twice a day while you are on it. Also recommend a [id number] laxative such as senna or MiraLAX any day that you do not have a bowel movement. If you received narcotic pain medication in the emergency department, do not drive or operate machinery for the next 24 hours. Forms: Activity restrictions Discharge Date/Time: 09/07/18 13:06
== END 2018-09-07 13:06 | disposition home or self-care (01) ==
LOC: ED 11:33
DX: S29.019A Strain of muscle and tendon of unspecified wall of thorax, initial encounter (principal); X50.0XXA Overexertion from strenuous movement or load, initial encounter; Y99.0 Civilian activity done for income or pay; Z95.5 Presence of coronary angioplasty implant and graft; Z79.82 Long term (current) use of aspirin
CPT/HCPCS: 93005; 99283; A9270